=== PATIENT | male | born 1960 | race African-American/Black ===

== ENCOUNTER 2025-04-04 12:22 | Emergency (ER) | payer MEDICAID ==
[~2025-04-04] VITALS: Ht 177.8 cm; Wt 100.0 kg
[~2025-04-04 12:22] MED LIST: ASPI-1497 MT; ATOR20TA65 MT; DARU1TAB MT; DOLU50TA MT; LEVO250T74 PO; MARA150T MT; METF-1149 MT; TAMS-54 PO; THIA100T72 PO
[2025-04-04 12:41] VITALS: TEMP 36.7; O2SAT 96
[2025-04-04 17:43] LABS: BASOPHILS % 0.6 % (0.0-2.0); EOSINOPHILS % 1.7 % (0.0-5.0); HEMATOCRIT. 36.3 % (42.0-52.0); HEMOGLOBIN. 11.7 g/dL (14.0-18.0); LYMPHOCYTES % 24.9 % (20.0-50.0); MEAN PLATELET VOLUME 7.0 fl (7.4-10.4); MONOCYTES % 7.7 % (2.0-8.0); NEUTROPHILS % 65.1 % (40.0-76.0); PLATELET 421 x1000/uL (130-400); RED BLOOD CELL COUNT 4.32 mill/uL (4.7-6.1); RED CELL DISTRIBUTION WIDTH 16.2 % (11.6-14.6)
[2025-04-04 17:58] LABS: CREATININE 1.0 mg/dL (0.6-1.3); UREA NITROGEN BLOOD 9 mg/dL (9-23)
[2025-04-04 20:00] VITALS: BP 114/70; PULSE 96; RESP 18; O2SAT 96
[2025-04-04] MEDS ORDERED: IOHEXOL-300 100 ML BOTTLE ONE (23:34)
== END 2025-04-04 20:08 | disposition home or self-care (01) ==
LOC: ER 12:22
DX: Z43.6 Encounter for attention to other artificial openings of urinary tract (principal); E11.9 Type 2 diabetes mellitus without complications; Z79.899 Other long term (current) drug therapy; Z90.49 Acquired absence of other specified parts of digestive tract
CPT/HCPCS: 99285; 74177; 80048; 85025; 36415; Q9967